=== PATIENT | male | born 1960 | race Caucasian/White ===

== ENCOUNTER 2023-08-16 08:00 | Outpatient (RCR) | payer BC, SELFPAY ==
--- NOTE | 2023-07-19 17:32 | OPREHPOC ---
Outpatient Therapy Plan of Care This is a Multidisciplinary Plan of Care that may contain components documented by all disciplines (PT, OT, and ST.) PT Problem 1 PT Problem #1 Knowledge Deficit PT Goal 1 Goal [place] with HEP PT Goal 2 Goal Patient will ambulate with even stride length bilaterally for improved functional mobility and ADL performance Target Visit 8 PT Problem 2 PT Problem #2 Impaired Range of Motion PT Goal 1 Goal Patient will demonstrate terminal knee extension on R knee for gait normalization Target Visit 8 PT Goal 2 Goal Patient will demonstrate 40 degrees brian hip abduction to reduce restricted hip and pelvic pull during ADLs Target Visit 8 PT Problem 3 PT Problem #3 Impaired Flexibility PT Goal 1 Goal Demonstrate -25 degrees or better HS 90/90 test for reduced posterior pelvic pull Target Visit 8
--- NOTE | 2023-07-19 17:33 | PTOPEVAL1 ---
Assessment and note entered by Ayan Milligan, PT Evaluation Information Assessment Status Evaluation Diagnosis Primary OA of Right Knee, Low back pain Onset 06/25/23 Subjective Information Patient reports that he had an injection about 2 weeks ago. Knee is doing a lot better. L4-L5 Fusion is present and back has been acting up. He is more primarily concerned with his back pain at this time. He works as a musician. All of the back pain is around the area of his fusion. He does not have pain from sitting but does when he goes to stand. Pain goes away when laying down. Back pain is usually always on the R side. Reported Pain Level Pain Score 1: Self Report Assessment PT Clinical Summary Patient presents with knee pain symptoms this date which are improved with injection. He has had some flare ups of low backpain which are likely attributed to gait deviation. Will benefit from skilled therapy to address knee mobility and back pain as part of kinematic chain correction. Patient is leaving for vacation in 4 weeks and would like to maximize function of knee and back. Plan of Care Interventions Hot Pack/Cold Pack,Manual Therapy,Neuro Re- education,Therapeutic Activities,Therapeutic Exercise PT Services Indicated Yes Treatment Frequency and 2x/week for 8 visits Duration These treatments will address the objective and functional deficits as defined above. The patient will be advanced safely and appropriately in order for the patient to progress towards his/her prior level of function. Additional exercises will be introduced and as well as a comprehensive home exercise program upon discharge, if needed, ?to ensure carryover of functional gains achieved in the clinic. This treatment plan has been reviewed and agreement upon by the patient.
--- NOTE | 2023-08-16 08:50 | PTOPDC ---
Assessment and note entered by Ayan Milligan, PT Evaluation Information Assessment Status Discharge Diagnosis Primary OA of Right Knee, Low back pain Onset 06/25/23 Subjective Information Reports that overall he is a lot better than when he started therapy. Reports that with fusions he feels he has limitations with his back. Knee is 100% better than when he started. He has been able to turn over in bed a little better without severe pain. Reported Pain Level Pain Score 0,0: Self Report Assessment PT Clinical Summary Patient met majority of his goals for therapy at this time. Knee appears to not be an issue at this time and he has resumed an extensive walking routine. Still having some hindrance in the back but is improving from symptoms that started in June . Suitable for discharge to [facility] at this time. Plan of Care PT Services Indicated D/C to HEP
--- NOTE | 2023-08-16 08:50 | OPREHPOC ---
Outpatient Therapy Plan of Care This is a Multidisciplinary Plan of Care that may contain components documented by all disciplines (PT, OT, and ST.) PT Problem 1 PT Problem #1 Knowledge Deficit PT Goal 1 Goal [place] with HEP Progress Met PT Goal 2 Goal Patient will ambulate with even stride length bilaterally for improved functional mobility and ADL performance Target Visit 8 Progress Met PT Problem 2 PT Problem #2 Impaired Range of Motion PT Goal 1 Goal Patient will demonstrate terminal knee extension on R knee for gait normalization Target Visit 8 Progress Met PT Goal 2 Goal Patient will demonstrate 40 degrees brian hip abduction to reduce restricted hip and pelvic pull during ADLs Target Visit 8 Progress Partially Met Comment Mostly met. Lacking 2 degrees of measure this date . PT Problem 3 PT Problem #3 Impaired Flexibility PT Goal 1 Goal Demonstrate -25 degrees or better HS 90/90 test for reduced posterior pelvic pull Target Visit 8 Progress Met
== END 2023-08-16 10:51 | disposition home or self-care (01) ==
LOC: ANHGOSHPT 08:00
PROVIDERS: PCP Internal Medicine; Visit Provider Orthopaedic Surgery
DX: M17.11 Unilateral primary osteoarthritis, right knee (principal)
CPT/HCPCS: 97110; 97140; 97161; 97530

== ENCOUNTER 2024-12-18 00:21 | Day surgery (SDC) | payer MEDICARE, BC, SELFPAY ==
--- OUTSIDE RECORDS SUMMARY | 2002-02-19 18:00 | XMS_ITS | Continuity of Care Document ---
Author Organization Formerly [facility] Address [address] [place] [address] [place] [address] Phone Care Team Providers Care Plaster Helper Name Role Phone [facility] [employer] Unavailable Unavail able Scarlet Dawson Unavailable Unavailable Advance Directives Directive Yes / No Effective Date File Name No Information Encounters Encounter Description Practice Location Reason(s) For Visit Diagnoses Date Provider Providers Copied on Encounter [facility], [address], [place], [place], [id number], [place] tel:[phone] [facility] No Information [address] [employer] [address] [facility], [address], [place], [place], [id number] , [place]. tel:[phone] Consulting Provider: Scarlet Dawson, [address] [place] [address], [address]. tel:[phone] Family History Family Member Type Diagnosis Age At Onset No Information Payers Payer name Insurance type Covered constitution party ID Authoriza tion(s) No Information Social History Type Description Quantity Date Captured Comments Sex Male Smoking Status No Information Chief Complaint And Reason For Visit No Information Reason For Referral Reason For Referral No Information History Of Present Illness Encounter Date Complaint History Of Prese nt Illness No Information Functional Status Date Functional Assessmen t No Information Instructions Date Instruction Additional Infor mation No Information Assessments Type Assessment Date No Information Patient Care Teams Name Effective Dates (start - stop) Status Members No Information
--- OUTSIDE RECORDS SUMMARY | 2024-12-12 08:01 | XMS_ITS | Continuity of Care Document ---
Author Organization [facility] Address [address] [place] [phone] Phone Care Team Providers Care Stock Patcher Name Role Phone Aramis Olguin MD Unavailable Unavailabl e Allergies, Adverse Reactions, Alerts Substance Reaction Status Criticality No Known Allergies Active No Inform ation Medications Medication Instructions Dosage Effective Dates (start - stop) Status Comments metoprolol tartrate 25 mg tablet take 1 pill twice a day - Active montelukast 10 mg tablet TAKE 1 TABLET DAILY - Active pantoprazole 40 mg tablet,delayed release TAKE 1 TABLET DAILY - Active atorvastatin 20 mg tablet TAKE 1 TABLET DAILY - Active Eliquis 5 mg tablet TAKE 1 TABLET TWICE A DAY - Active lisinopril 2.5 mg tablet TAKE 1 TABLET BY MOUTH EVERYDAY AT BEDTIME - Active metoprolol tartrate 25 mg tablet - No Longer Active Procedures Procedure Date Complex e/m visit add on OFFICE/OUTPATIENT VISIT, EST ELECTROCARDIOGRAM, COMPLETE Advance Directives Directive Yes / No Effective Date File Name No Information Encounters Encounter Description Practice Location Reason(s) For Visit Diagnoses Date Provider Providers Copied on Encounter [facility], [address], [place], [id number] , tel: [phone] [facility] [place] No Information Clau Self. [address] [place] [address], [place], [id number], . tel:[phone] OFFICE/OUTPA TIENT VISIT, EST [facility], [address] [place] [address], [id number] , tel: [phone] [facility] procedure clearance (chief complaint) CADPalpitationsEsse ntial (primary) hypertensionAcute DVT of deep femoral vein Nov0 5 [facility] Saulius. [address] , [place], [place], [id number], [place]. tel:[phone] Referring Provider: Lyndon Ramírez, [address] [place] [address], [address]. tel:[phone] [facility], [address] [place] [address], [id number] , tel:[phone] [facility] O[place]ie No Information Oct-2 5 [facility] Saulius. [address] [place], [place], [id number], [place]. tel:[phone] Family History Family Member Type Diagnosis Age At Onset No Information Payers Payer name Insurance type Covered libertarian ID [place] aly(s) MIKE MEDICARE PART B [id number] Social History Type Description Quantity Date Captured Comments Alcohol Use Details Unknown Caffeine Use Details Unknown Tobacco Use Status No Information Smoking Status No Information Sex Male Chief Complaint And Reason For Visit No Information Reason For Referral Reason For Referral No Information Plan Of Treatment Date Type Action Status Appointment [place] [facility] BOOKED History Of Present Illness Encounter Date Complaint History Of Prese nt Illness procedure clearance Functional Status Date Functional Assessmen t No Information Instructions Date Instruction Additional Infor mation No Information Assessments Type Assessment Date No Information Patient Care Teams Name Effective Dates (start - stop) Status Members No Information
[2024-12-12 15:41] VITALS: BMI 27.3
--- NOTE | 2024-12-12 16:04 | PC.NURSE ---
Spoke with Patient regarding medication Eliquis. Patient verbalizes understanding that the last dose is to be taken on 12/14/2024 and the Endoscopist will instruct them when to restart after the procedure.
--- OUTSIDE RECORDS SUMMARY | 2024-12-18 00:24 | XMS_ITS | Clinical Summary ---
Author Organization [facility] Address [address] [place] [address] Care Team Providers Care Linux Support Engineer Name Role Phone Lyndon Ramírez MD Primary Care Provider [phone] Allergies Active Allergy Reactions Criticality Noted Date Comments Sulfamethoxazole-Trimethoprim Hives Medium [address] (PROTONIX) 40 mg EC tablet Take 1 tablet (40 mg total) by mouth daily 4 Active montelukast (SINGULAIR) 10 mg tablet Take 1 tablet (10 mg total) by mouth daily 4 Active metoprolol tartrate (LOPRESSOR) 25 mg immediate release tablet Take 1 tablet (25 mg total) by mouth 2 (two) times a day 4 Active lisinopriL (PRINIVIL,ZESTR IL) 2.5 mg tablet Take 1 tablet (2.5 mg total) by mouth nightly 4 Active atorvastatin (LIPITOR) 20 mg tablet Take 1 tablet (20 mg total) by mouth daily 4 Active Eliquis 5 mg tablet Take 1 tablet (5 mg total) by mouth 2 (two) times a day 4 Active multivitamin tabletIndicatio ns:Vitamin Deficiency Prevention Take 1 tablet by mouth daily Active magnesium oxide 400 mg magnesium capsule Take 400 mg by mouth daily Active cyanocobalamin (Vitamin B-12) 500 mcg tabletIndicatio ns:Prevention of Vitamin B12 Deficiency Take 1 tablet (500 mcg total) by mouth daily Active loratadine 10 mg capsule Take 10 mg by mouth daily Active Lactobac no.41/Bifidobac t no.7 (PROBIOTIC-10 ORAL) Take 1 tablet by mouth daily Active fluticasone propionate (FLONASE) 50 mcg/actuation nasal spray Administer 2 sprays into each nostril as needed Active Active Problems Problem Noted Date Diagnosed Date Abnormal stress test 09/27/2023 Surgical History Surgery Date Site/Laterality Comments MENISCUS SURGERY 02/07/2019 - 02/07/2020 Right LAMINECTOMY 02/07/1987 - 02/07/1988 L4-L5 Medical History Medical History Date Comments Hypertension DVT (deep venous thrombosis) lef t leg HLD (hyperlipidemia) Gastritis Seasonal allergies Torn meniscus right Social History Tobacco Use Types Packs/Day Years Used Date Smoking Tobacco: Never Tobacco Cessation:Counseling Given: Not Answered AUDIT-C Answer Date Recorded Q1: How often do you have a drink containing alc ohol? Monthly or less 10/13/2023 Q2: How many drinks containi ng alcohol do you have on a typical day when you are drinking? 1 or 2 10/13/2023 Q3: How often do you have si x or more drinks on one occasion? Never 10/13/2023 Personal Safety Answer Date Recorded Have you ever been in or are you currently in a harmful physical or emotional relationship or is someone making you feel afraid or unsafe? Denies 10/13/2023 Sex and Gender Information Value Date Recorded Sex Assigned at Not on file Legal Sex Male 9:18 AM CDT Gender Identity Not on file Sexual Orientation Not on file Last Filed Vital Signs Vital Sign Reading Time Taken Comments Blood Pressure 126/83 10/13/2023 11:15 AM CDT Pulse 64 10/13/2023 11:20 AM CDT Temperature 36.6 C (97.8 F) 10/13/2023 6:54 AM CDT Respiratory Rate 18 10/13/2023 11:15 AM CDT Oxygen Saturation 95% 10/13/2023 11:20 AM CDT Inhaled Oxygen Concentration - - Weight 103.4 kg (228 lb) 10/13/2023 6:54 AM CDT Height 188 cm (6' 2) 10/13/2023 6:54 AM CDT Body Mass Index 29.27 10/13/2023 6:54 AM CDT Plan of Treatment Health Maintenance Due Date Last Done Comments Colon Cancer Screening-Colonoscopy 1958 Depression Screening 1958 Hepatitis C Screening 1958 Prostate Cancer Screening-PSA 1958 DTaP/Tdap/Td Vaccine (1 - Tdap) 1969 Hepatitis B Screening 1976 Pneumococcal vaccine 65+ (1 of 2 - PCV) 1977 Zoster Vaccine (1 of 2) 2008 Abdominal Aortic Aneurysm (A AA) Screen 10/07/2023 Well Visit 65+ 10/07/2023 Covid-19 Vaccine (7 - 2024-2 6 season) 2024 12/05/2022, 12/13/2021, 12/13/2021, Additional history exists Influenza Vaccine (#1) 2024 , 11/26/2021, 11/20/2020, Additional history exists Fall Risk Assessment 10/12/2024 10/13/2023 Medical Devices Implanted Type Area Ribbon Winder Device Identifier Shelf Expiration Date Model / Serial / Lot Fusion Back Insurance [facility] FEDERAL MEDICARE Care Teams Linux Support Engineer Relationship Specialty Start Date End Date Lyndon Ramírez MD PCP - General Internal Medicine 09/29/23
--- OUTSIDE RECORDS SUMMARY | 2024-12-18 00:24 | XMS_ITS | Data Portability ---
Author Organization [place] [facility] [employer], Main Office Address [address] [place] [address] Care Team Providers Care Skin Former Name Role Phone SANCHEZ RAMÍREZ Primary Care Provider SANCHEZ RAMÍREZ Referring Provider Assessment Encounter Date Assessment Date Assessment LastModified by Organization Details LastModified Time 05/05/2022 05/05/2022 Nebulous symptoms will obtain blood work CT scan of the abdomen and pelvis he just had a colonoscopy I believe a couple years ago see him back in about 3 weeks gallbladder ultrasound [email or web address] Not available 05/05/2022 21:53:01 05/28/2022 05/28/2022 Add Flonase other medicines will continue PPI ordered follow-up 3 months [email or web address] Not available 05/30/2022 14:50:09 09/23/2022 09/23/2022 Blood pressure control continue current therapy get anchest x-ray see me back in 6 months [email or web address] Not available 09/23/2022 11:04:11 Plan of Treatment Reminders Order Date Submit Date Provider Last Modified By Organization Details Last Modified Time Details Appointments None recorded. Lab CMP, serum or plasma 2022 023 CARMELITA Not available 18:51:43 CBC w/ auto diff 2022 023 CARMELITA Not available 19:24:10 lipase, serum or plasma 2022 023 CARMELITA Not available 18:51:44 urinalysis, microscopic 2022 023 cyahl Not available 04/21/202 3 10:58:24 Referral None recorded. Procedures None recorded. Surgeries None recorded. Imaging XR, chest 2022 023 [facility] Not available 4 11:59:08 US, gallbladder - no auth required per [facility]ail[facility] 2022 023 cyahl [facility] ([facility]), [address] [place], [address], 3 10:58:31 CT, abdomen + pelvis, w/ contrast - Approved [id number] 05/11/2022- 07/09/20222022 [facility] [address] [place], [address], 3 16:59:16 Medication Orders Flonase Allergy Relief 50 mcg/actuati on nasal spray,suspe nsion 2022 023 [facility] #[id number], [address], [address], 3 10:58:49 Patient TargetsNo targets recorded. Patient InstructionsNo instructions recorded. Reason for Referral None Reported. Results Created Date Observation Date Name Description Value Unit Range Abnormal Flag Note LastModifiedBy Organization Detail LastModifiedTime 05/29/19 22 05/28/2021 LIPID PANEL cholesterol 161 mg/dL 140-19 9 NIH VINNIE NSUS RECOM MENDA TION FOR CHANTEL STERO L: ADULT CHILD LOW RISK: <200 <170 BORDE RLINE : <200- 239 ----- HIGH RISK: >240 >200 Not Available [facility] (Lab) [address] [place], [address], 05/28/2021 20:25:34 05/29/19 22 05/28/2021 LIPID PANEL triglyceride s 138 mg/dL 0-150 NIH VINNIE NSUS REPOR T RECOM MENDA TION FOR TRIGL YCERI AKHIL: ADULT CHILD LOW RISK: <150 ----- BODER LINE: 150-1 99 ----- HIGH RISK: >200 ----- Not Available [facility] (Lab) [address] [place], [address], 05/28/2021 20:25:34 05/29/19 22 05/28/2021 LIPID PANEL HDL cholesterol 60 mg/dL 40- Not Available [facility] (Lab) [address] [place], [address], 05/28/2021 20:25:34 05/29/19 22 05/28/2021 LIPID PANEL LDL cholesterol, calculated 73 mg/dL 0-130 NIH VINNIE NSUS REPOR T RECOM MENDA TIONS FOR LDL: ADULT CHILD LOW RISK <130 <110 (OPTI MAL LDL) <100 ----- JUANDE RLINE : 130-1 59 ----- HIGH RISK: >160 >130 A TRIGL YCERI DE RESUL T >400 INVAL IDATE S THE CALCU LATIO N FOR LDL FRACT IONAT ION - THE LDL RESUL T WILL NOT BE REPOR JOHNNIE. Not Available [facility] (Lab) [address] [place], [address], 05/28/2021 20:25:34 05/29/19 22 05/28/2021 COMPR EHENS GIOVANNI METAB OLIC PANEL sodium 135 mmol/ L 137-14 5 low Not Available [facility] (Lab) [address] [place], [address], 05/28/2021 20:25:32 05/29/19 22 05/28/2021 COMPR EHENS GIOVANNI METAB OLIC PANEL potassium 4.9 mmol/ L 3.5-5. 1 Not Available [facility] (Lab) [address] [place], [address], 05/28/2021 20:25:32 05/29/19 22 05/28/2021 COMPR EHENS GIOVANNI METAB OLIC PANEL chloride 99 mmol/ L 98-107 Not Available [facility] (Lab) [address] [place], [address], 05/28/2021 20:25:32 05/29/19 22 05/28/2021 COMPR EHENS GIOVANNI METAB OLIC PANEL carbon dioxide 31 mmol/ L 22-30 high Not Available [facility] (Lab) [address] [place], [address], 05/28/2021 20:25:32 05/29/19 22 05/28/2021 COMPR EHENS GIOVANNI METAB OLIC PANEL anion gap 9.9 mmol/ L 14-22 low Not Available [facility] (Lab) [address] [place], [address], 05/28/2021 20:25:32 05/29/19 22 05/28/2021 COMPR EHENS GIOVANNI METAB OLIC PANEL glucose 95 mg/dL 70-99 Not Available [facility] (Lab) [address] [place], [address], 05/28/2021 20:25:32 05/29/19 22 05/28/2021 COMPR EHENS GIOVANNI METAB OLIC PANEL BUN 16 mg/dL 8-19 Not Available [facility] (Lab) [address] [place], [address], 05/28/2021 20:25:32 05/29/19 22 05/28/2021 COMPR EHENS GIOVANNI METAB OLIC PANEL creatinine 0.63 mg/dL 0.66-1 .25 low Not Available [facility] (Lab) [address] [place], [address], 05/28/2021 20:25:32 05/29/19 22 05/28/2021 COMPR EHENS GIOVANNI METAB OLIC PANEL GFR >60 Refer ence Range : [place] ge GFR Healt hy Adult : >60 mL/mi n/1.7 3 m2 Chron ic Kidne y Disea se: 15-60 mL/mi n/1.7 3 m2 Kidne y Failu re: <15/m L/min /1.73 m2 www.n iddk. nih.g ov The MDRD study equat ion has not been valid ated in child hiram <18 years of age; pregn ant women ; the elder ly >85 years of age; or in some racia l or ethni c subgr oups, such as Hismiguel nics. Outsi de the valid ated ronaldo eters , estim ated GFR is less accur ate, requi ring clini clint judgm ent on a case- by-ca se basis . Clini clint inter preta tion for other races and ages must be made by the clini madeline. The MDRD study equat ion has not been valid ated for the evalu ation of serum creat inine relat ed to nutri enid l statu s or medic ation usage . For perso ns <18 years of age, a pedia tric GFR calcu lator is avail able on the [facility] websi te: https ://caleb baldwin.gee holcomb.o rg/pr ofess ional s/kdo qi/gf r_cal culat or Not Available [facility] (Lab) [address] [place], [address], 05/28/2021 20:25:32 05/29/19 22 05/28/2021 COMPR EHENS GIOVANNI METAB OLIC PANEL alkaline phosphatase 97 U/L 38-126 Not Available [facility] (Lab) [address] [place], [address], 05/28/2021 20:25:32 05/29/19 22 05/28/2021 COMPR EHENS GIOVANNI METAB OLIC PANEL alanine aminotransfe rase 25 U/L 0-50 Not Available [facility] (Lab) [address] [place], [address], 05/28/2021 20:25:32 05/29/19 22 05/28/2021 COMPR EHENS GIOVANNI METAB OLIC PANEL aspartate aminotransfe rase 30 U/L 15-46 Not Available [facility] (Lab) [address] [place], [address], 05/28/2021 20:25:32 05/29/19 22 05/28/2021 COMPR EHENS GIOVANNI METAB OLIC PANEL bilirubin, total 0.50 mg/dL 0.20-1 .30 Not Available [facility] (Lab) [address] [place], [address], 05/28/2021 20:25:32 05/29/19 22 05/28/2021 COMPR EHENS GIOVANNI METAB OLIC PANEL calcium 9.7 mg/dL 8.4-10 .2 Not Available [facility] (Lab) [address] [place], [address], 05/28/2021 20:25:32 05/29/19 22 05/28/2021 COMPR EHENS GIOVANNI METAB OLIC PANEL total protein 7.3 g/dL 6.3-8. 2 Not Available [facility] (Lab) [address] [place], [address], 05/28/2021 20:25:32 05/29/19 22 05/28/2021 COMPR EHENS GIOVANNI METAB OLIC PANEL albumin 4.3 g/dL 3.4-5. 0 Not Available [facility] (Lab) [address] [place], [address], 05/28/2021 20:25:32 05/29/19 22 05/28/2021 COMPR EHENS GIOVANNI METAB OLIC PANEL globulin 3.0 g/dL 2.6-4. 2 Not Available [facility] (Lab) [address] [place], [address], 05/28/2021 20:25:32 05/29/19 22 05/28/2021 COMPR EHENS GIOVANNI METAB OLIC PANEL A/G ratio 1.4 ratio 1.0-2. 0 Not Available [facility] (Lab) [address] [place], [address], 05/28/2021 20:25:32 05/06/19 23 05/05/2022 COMPR EHENS GIOVANNI METAB OLIC PANEL sodium 138 mmol/ L 137-14 5 Not Available [facility] (Lab) [address] [place], [address], 05/05/2022 18:51:43 05/06/19 23 05/05/2022 COMPR EHENS GIOVANNI METAB OLIC PANEL potassium 4.8 mmol/ L 3.5-5. 1 Not Available [facility] (Lab[facility] [address] [facility] [place], [address], 05/05/2022 18:51:43 05/06/19 23 05/05/2022 COMPR EHENS GIOVANNI METAB OLIC PANEL chloride 104 mmol/ L 98-107 Not Available [facility] (Lab) [address] [place], [address], 05/05/2022 18:51:43 05/06/19 23 05/05/2022 COMPR EHENS GIOVANNI METAB OLIC PANEL carbon dioxide 28 mmol/ L 22-30 Not Available [facility] (Lab) [address] [place], [address], 05/05/2022 18:51:43 05/06/19 23 05/05/2022 COMPR EHENS GIOVANNI METAB OLIC PANEL anion gap 10.8 mmol/ L 14-22 low Not Available [facility] (Lab) [address] [place], [address], 05/05/2022 18:51:43 05/06/19 23 05/05/2022 COMPR EHENS GIOVANNI METAB OLIC PANEL glucose 99 mg/dL 70-99 Not Available [facility] (Lab) [address] [place], [address], 05/05/2022 18:51:43 05/06/19 23 05/05/2022 COMPR EHENS GIOVANNI METAB OLIC PANEL BUN 15 mg/dL 8-19 Not Available [facility] (Lab) [address] [place], [address], 05/05/2022 18:51:43 05/06/19 23 05/05/2022 COMPR EHENS GIOVANNI METAB OLIC PANEL creatinine 0.64 mg/dL 0.66-1 .25 low Not Available [facility] (Lab) [address] [place], [address], 05/05/2022 18:51:43 05/06/19 23 05/05/2022 COMPR EHENS GIOVANNI METAB OLIC PANEL GFR >60 Refer ence Range : [place] ge GFR Healt hy Adult : >60 mL/mi n/1.7 3 m2 Chron ic Kidne y Disea se: 15-60 mL/mi n/1.7 3 m2 Kidne y Failu re: <15/m L/min /1.73 m2 www.n iddk. nih.g ov The MDRD study equat ion has not been valid ated in child hiram <18 years of age; pregn ant women ; the elder ly >85 years of age; or in some racia l or ethni c subgr oups, such as Hispr nics. Outsi de the valid ated ronaldo eters , estim ated GFR is less accur ate, requi ring clini clint judgm ent on a case- by-ca se basis . Clini clint inter preta tion for other races and ages must be made by the clini madeline. The MDRD study equat ion has not been valid ated for the evalu ation of serum creat inine relat ed to nutri enid l statu s or medic ation usage . For perso ns <18 years of age, a pedia tric GFR calcu lator is avail able on the F websi te: https ://caleb w.kid zhang.o rg/pr ofess ional s/kdo qi/gf r_cal culat or Not Available [facility] (Lab) [address] [place], [address], 05/05/2022 18:51:43 05/06/19 23 05/05/2022 COMPR EHENS GIOVANNI METAB OLIC PANEL alkaline phosphatase 96 U/L 38-126 Not Available [facility] (Lab) [address] [place], [address], 05/05/2022 18:51:43 05/06/19 23 05/05/2022 COMPR EHENS GIOVANNI METAB OLIC PANEL alanine aminotransfe rase 40 U/L 0-50 Not Available [facility] (Lab) [address] [facility] [place], [address], 05/05/2022 18:51:43 05/06/19 23 05/05/2022 COMPR EHENS GIOVANNI METAB OLIC PANEL aspartate aminotransfe rase 37 U/L 15-46 Not Available [facility] (Lab) [address] [place], [address], 05/05/2022 18:51:43 05/06/19 23 05/05/2022 COMPR EHENS GIOVANNI METAB OLIC PANEL bilirubin, total 0.80 mg/dL 0.20-1 .30 Not Available [facility] (Lab) [address] [place], [address], 05/05/2022 18:51:43 05/06/19 23 05/05/2022 COMPR EHENS GIOVANNI METAB OLIC PANEL calcium 9.3 mg/dL 8.4-10 .2 Not Available [facility] (Lab) [address] [place], [address], 05/05/2022 18:51:43 05/06/19 23 05/05/2022 COMPR EHENS GIOVANNI METAB OLIC PANEL total protein 7.0 g/dL 6.3-8. 2 Not Available [facility] (Lab) [address] [place], [address], 05/05/2022 18:51:43 05/06/19 23 05/05/2022 COMPR EHENS GIOVANNI METAB OLIC PANEL albumin 4.2 g/dL 3.0-4. 4 Not Available [facility] (Lab) [address] [place], [address], 05/05/2022 18:51:43 05/06/19 23 05/05/2022 COMPR EHENS GIOVANNI METAB OLIC PANEL globulin 2.8 g/dL 2.6-4. 2 Not Available [facility] (Lab) [address] [place], [address], 05/05/2022 18:51:43 05/06/19 23 05/05/2022 COMPR EHENS GIOVANIN METAB OLIC PANEL A/G ratio 1.5 ratio 1.0-2. 0 Not Available [facility] (Lab) [address] [place], [address], 05/05/2022 18:51:43 05/06/19 23 05/05/2022 LIPAS E SERUM lipase 74 U/L 23-300 Not Available [facility] (Lab) [address] [place], [address], 05/05/2022 18:51:44 05/06/19 23 05/05/2022 CBC/C OMPLE TE BLD COUNT W/DIF F white blood cells 5.0 x10'3 /uL 4.2-10 .8 Not Available [facility] (Lab) [address] [place], [address], 05/05/2022 19:24:10 05/06/1905/05/2022 CBC/C OMPLE TE BLD COUNT W/DIF F red blood cells 4.47 x10'6 /uL 4.10-5 .80 Not Available [facility] (Lab) [address] [place], [address], 05/05/2022 19:24:10 05/06/19 23 05/05/2022 CBC/C OMPLE TE BLD COUNT W/DIF F hemoglobin 14.7 g/dL 13.2-1 7.0 Not Available [facility] (Lab) [address] [place], [address], 05/05/2022 19:24:10 05/06/19 23 05/05/2022 CBC/C OMPLE TE BLD COUNT W/DIF F hematocrit 45.0 % 39.3-5 0.0 Not Available [facility] (Lab) [address] [place], [address], 05/05/2022 19:24:10 05/06/19 23 05/05/2022 CBC/C OMPLE TE BLD COUNT W/DIF F mean red cell volume 100.7 fL 80.0-9 7.0 high Not Available [facility] (Lab) [address] [place], [address], 05/05/2022 19:24:10 05/06/19 23 05/05/2022 CBC/C OMPLE TE BLD COUNT W/DIF F mean red cell hemoglobin 32.9 pg 27.0-3 3.0 Not Available [facility] (Lab) [address] [place], [address], 05/05/2022 19:24:10 05/06/19 23 05/05/2022 CBC/C OMPLE TE BLD COUNT W/DIF F mean RBC HGB concentratio n 32.7 g/dL 31.0-3 6.0 Not Available [facility] (Lab) [address] [place], [address], 05/05/2022 19:24:10 05/06/1905/05/2022 CBC/C OMPLE TE BLD COUNT W/DIF F red cell distribution width 12.1 % 11.8-1 5.5 Not Available [facility] (Lab) [address] [place], [address], 05/05/2022 19:24:10 05/06/19 23 05/05/2022 CBC/C OMPLE TE BLD COUNT W/DIF F platelets 240 x10'3 /uL 150-40 0 Not Available [facility] (Lab) [address] [place], [address], 05/05/2022 19:24:10 05/06/1905/05/2022 CBC/C OMPLE TE BLD COUNT W/DIF F mean platelet volume 10.6 fL 9.0-12 .4 Not Available [facility] (Lab) [address] [place], [address], 05/05/2022 19:24:10 05/06/1905/05/2022 CBC/C OMPLE TE BLD COUNT W/DIF F neutrophils 65.9 % 39.0-7 2.0 Not Available [facility] (Lab) [address] [place], [address], 05/05/2022 19:24:10 05/06/1905/05/2022 CBC/C OMPLE TE BLD COUNT W/DIF F lymphocytes 18.9 % 16.0-4 7.0 Not Available [facility] (Lab) [address] [place], [address], 05/05/2022 19:24:10 05/06/1905/05/2022 CBC/C OMPLE TE BLD COUNT W/DIF F monocytes 11.0 % 5.0-12 .0 Not Available [facility] (Lab) [address] [place], [address], 05/05/2022 19:24:10 05/06/1905/05/2022 CBC/C OMPLE TE BLD COUNT W/DIF F eosinophils 3.4 % 1.0-7. 0 Not Available [facility] (Lab) [address] [place], [address], 05/05/2022 19:24:10 05/06/19 23 05/05/2022 CBC/C OMPLE TE BLD COUNT W/DIF F basophils 0.4 % 0.0-2. 0 Not Available [facility] (Lab) [address] [place], [address], 05/05/2022 19:24:10 05/06/1905/05/2022 CBC/C OMPLE TE BLD COUNT W/DIF F immature granulocytes 0.4 % 0.00-0 .50 Not Available [facility] (Lab) [address] [place], [address], 05/05/2022 19:24:10 05/06/19 23 05/05/2022 CBC/C OMPLE TE BLD COUNT W/DIF F neutrophils, absolute count 3.31 x10'3 /uL 1.5-8. 0 Not Available [facility] (Lab) [address] [place], [address], 05/05/2022 19:24:10 05/06/19 23 05/05/2022 CBC/C OMPLE TE BLD COUNT W/DIF F lymphocytes, absolute count 0.95 x10'3 /uL 1.07-3 .43 low Not Available [facility] (Lab) [address] [place], [address], 05/05/2022 19:24:10 05/06/19 23 05/05/2022 CBC/C OMPLE TE BLD COUNT W/DIF F monocytes, absolute count 0.55 x10'3 /uL 0.29-0 .99 Not Available [facility] (Lab) [address] [place], [address], 05/05/2022 19:24:10 05/06/19 23 05/05/2022 CBC/C OMPLE TE BLD COUNT W/DIF F eosinophils, absolute count 0.17 x10'3 /uL 0.02-0 .53 Not Available [facility] (Lab) [address] [place], [address], 05/05/2022 19:24:10 05/06/19 23 05/05/2022 CBC/C OMPLE TE BLD COUNT W/DIF F basophils, absolute count 0.02 x10'3 /uL 0.01-0 .08 Not Available [facility] (Lab) [address] [place], [address], 05/05/2022 19:24:10 05/06/19 23 05/05/2022 CBC/C OMPLE TE BLD COUNT W/DIF F immature granulocytes ,absolute 0.02 x10'3 /uL 0.00-0 .05 Not Available [facility] (Lab) [address] [place], [address], 05/05/2022 19:24:10 05/06/19 23 05/05/2022 CBC/C OMPLE TE BLD COUNT W/DIF F nucleated red blood cells 0.0 % -0 Not Available [facility] (Lab) [address] [place], [address], 05/05/2022 19:24:10 05/06/19 23 05/05/2022 CBC/C OMPLE TE BLD COUNT W/DIF F NRBC# 0.00 x10'3 /uL Not Available [facility] (Lab) [address] [place], [address], 05/05/2022 19:24:10 05/06/19 23 05/05/2022 URINE MICRO SCOPI C EXAM/ IRIS white blood cells 0-8 /i??h pfi?? 0-8 Not Available [facility] (Lab) [address] [place], [address], 05/05/2022 19:44:38 05/06/19 23 05/05/2022 URINE MICRO SCOPI C EXAM/ IRIS red blood cells 0-4 /i??h pfi?? 0-4 Not Available [facility] (Lab) [address] [place], [address], 05/05/2022 19:44:38 05/06/19 23 05/05/2022 URINE MICRO SCOPI C EXAM/ IRIS bacteria NONE Not Available [facility] (Lab) [address] [place], [address], 05/05/2022 19:44:38 05/06/19 23 05/05/2022 URINE MICRO SCOPI C EXAM/ IRIS mucous OCCASI ONAL /i??l pfi?? abnormal Not Available [facility] (Lab) [address] [place], [address], 05/05/2022 19:44:38 05/06/19 23 05/05/2022 URINE MICRO SCOPI C EXAM/ IRIS squamous epithelial NONE /i??l pfi?? Not Available [facility] (Lab) [address] [place], [address], 05/05/2022 19:44:38 05/06/19 23 05/05/2022 URINE MICRO SCOPI C EXAM/ IRIS hyaline cast OCCASI ONAL /i??l pfi?? none seen- abnormal Not Available [facility] (Lab) [address] [place], [address], 05/05/2022 19:44:38 11/27/19 22 11/26/2021 US, lower extre mity, vascu lar No observ ation record ed. [id number] [facility] [address], [place], [address], 04/07/2022 05:04:38 11/27/19 22 11/26/2021 US, echo ardio gram No observ ation record ed. [id number] [facility] [address], [place], [address], 04/07/2022 05:04:38 05/12/19 23 05/11/2022 CT, abdom en + pelvi s, w/ contr ast [facility] [address] [place] [address] [phone] Patien t Name: ANGELO MEDEL Benjamin Access ion #: [id number] Sex: M : 1960 3 Locati on: RAD Attend ing Physic lori: VICKY RAMÍREZ Orderi ng Physic lori: VICKY RAMÍREZ Exam Date: 05/12/19 3:03 PM Exam Name: CT ABDOME N PELVIS W Admitt ing Diagno sis(es ): RADIOL OGY REPORT - FINAL EXAM: CT ABDOME N PELVIS W HISTOR Y: abdomi nal pain COMPAR MILLER: None TECHNI QUE: The abdome n and pelvis are evalua johnnie with intrav enous contra st. Axial images are recons tructe d in the tipton l, sagitt al, and axial planes and are review ed with medias tinal lung window s settin gs. This CT exam was perfor med using one or more of the follow ing dose reduct ion techni ques: Automa johnnie exposu re contro l, adjust ment of the mA and/or kV accord ing to patien t size, or use of iterat giovanni recons tructi on techni que. Dose: 100 ML Isovue 300 intrav enous Page 1 of 4 [facility] [place] Rodrigo patrick Name: ANGELO MEDEL Access ion #: [id number] Sex: M : 1960 5 Exam Date: 05/12/19 3:03 PM Exam Name: CT ABDOME N PELVIS W Admitt ing Diagno sis(es ): Oral contra st:30 mL Gastro view PO FINDIN GS: Lower chest: Bibasi lar atelec tatic densit ies. CT ABDOME N: Liver: No acute findin gs, fatty liver parenc hymal replac ement residu als. Gallbl adder and biliar y system : Unrema rkable Spleen : Normal size Pancre as: Unrema rkable Adrena l glands : Unrema rkable Kidney s and ureter s: Unrema rkable Append ix: No CT eviden ce of append icitis . Stomac h and bowel: No eviden ce of gastri c outlet obstru ction. Mild thicke rowdy mucosa of the gastri c antrum , correl ate for peptic ulcer diseas e, direct visual izatio n could be perfor med. Perito brittany cavity : No acute proces s Lymph nodes: No signif icant lympha denopa thy Page 2 of 4 [facility] t Name: ANGELO MEDEL Benjamin Access ion #: [id number] Sex: M : 1960 5 Exam Date: 05/12/19 3:03 PM Exam Name: CT ABDOME N PELVIS W Admitt ing Diagno sis(es ): Vascul ature: No aneury sm Osseou s struct ures: Multil evel degene rative change s. 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 Extra abdomi nal soft tissue s: Unrema rkable CT PELVIS : Reprod uctive : Prosta tic enlarg ement, the median lobe of the prosta te impres ses upon the base of the bladde r, consid er referr al. Correl ate with PSA. Rectos igmoid : Modera te divert iculos is withou t eviden ce of an acute inflam matory proces s. Bladde r and distal ureter s: See above, no hydrou reter. Extra pelvic soft tissue s: Unrema rkable IMPRES MANDY: 1. Thicke mansoor mucosa of the gastri c antrum and proxim al pyloru s, correl ate for peptic ulcer diseas e or other sympto matolo gy, consid er direct visual izatio n referr al. 2. Prosta tic enlarg ement, the base of the bladde r is impres sed upon by the median lobe of the prosta te. 3. Sigmoi d divert iculos is. 4. Other findin gs descri bed above. Page 3 of 4 [facility] t Name: ISAURA Romero ANGELO Alexander Access ion #: [id number] Sex: M : 1960 5 Exam Date: 05/12/19 3:03 PM Exam Name: CT ABDOME N PELVIS W Admitt ing Diagno sis(es ): Create d and electr onical ly signed by: Juan frey MD Signed Date: 05/12/19 3:56 PM (CT) Dictat ed by: Juan frey MD (CT) (CT) Page 4 of 4 [email or web address] [facility] (Imaging) [address] [place], [address], 05/18/2022 17:29:29 05/20/19 23 05/19/2022 cardi ac monit or No observ ation record ed. [id number] [facility] [address], [place], [address], 05/31/2022 10:15:39 05/21/19 23 05/19/2022 US, gallb ladde r [facility] [address] [place] [address] Patien t Name: ANGELO MEDEL Access ion #: [id number] Sex: M : 1960 7 Locati on: RAD Attend ing Physic lori: VICKY RAMÍREZ Orderi ng Physic lori: VICKY RAMÍREZ Exam Date: 023 5:09 PM Exam Name: US ABDOME N SINGLE ORGAN Admitt ing Diagno sis(es ): RADIOL OGY REPORT - FINAL EXAM: US ABDOME N SINGLE ORGAN HISTOR Y: abdome n pain 61-yea r-old male with abdomi nal pain. COMPAR MILLER: CT scan dated 2022. TECHNI QUE: Right upper quadra nt ultras ound was perfor med. FINDIN GS: No gallst ones, gallbl adder wall thicke rowdy, or perich olecys tic free fluid. The patien t was not tender to transd ucer pressu re over the gallbl adder. No intrah epatic biliar y ductal dilata tion or liver mass. The liver is somewh at echoge faustina and diffic ult to penetr ate sonogr aphica lly. There is hepato petal portal venous color Dopple r flow. The common duct measur es 3.6 mm in diamet er. The pancre as is not well visual ized sonogr aphica lly, possib ly due Page 1 of 2 [facility] [place] Patien t Name: LINDAKLEBERANGELO Hurtado Access ion #: [id number] Sex: M : 1960 7 Exam Date: 5:09 PM Exam Name: US ABDOME N SINGLE ORGAN Admitt ing Diagno sis(es ): to overly ing bowel gas. The intrah epatic portio n of the IVC is patent . No upper abdomi nal aortic ectasi a. The right kidney measur es 10.3 cm in length and is normal in appear ance. IMPRES MANDY: 1. Possib le hepati c steato sis. 2. Otherw ise unrema rkable right upper quadra nt ultras ound. Create d and electr onical ly signed by: Shailesh fried MD Signed Date: 10:15 AM (CT) Dictat ed by: Shailesh fried MD DD: 10:15 AM (CT) DT: 10:15 AM (CT) Page 2 of 2 [facility] (Imaging) [address] [place], [address], 05/28/2022 10:58:31 06/05/19 23 06/04/2022 PFT, compl ete No observ ation record ed. [email or web address] [facility] [address], [place], [address], 09/23/2022 12:45:14 09/24/19 23 XR, chest [facility] [address] [facility] [place] [address] Patizaid t Name: ANGELO MEDEL Access ion #: [id number] Sex: M : 1960 4 Dictat ed By: Chucho Moreno Attend ing Physic lori: VICKY RAMÍREZ Orderi Physic lori: VICKY RAMÍREZ Exam Date: 2022 10:24 AM Exam Name: XR CHEST 2V Admitt ing Diagno sis(es ): EXAM: XR CHEST 2V INDICA TION: 61 years old Male sob COMPAR MILLER: None. FINDIN GS: The cardia c silhou ette is normal . There is no pulmon arlet edema. The lungs are clear. There is no pneumo alysha. There is no pneumo thorax . There is no abnorm al foreig n body. IMPRES MANDY: There is no acute abnorm ality. Electr onical ly Signed by: Chucho Moreno at 2022 13:27: 32 PM Page 1 [facility] (Imaging) [address] [place], [address], 03/07/2023 11:59:08 Result Notes Documentation Provider Name and Address Organization Details Recorded Time Ct, Abdomen + Pelvis, W/ Contrast : [facility] [address], [place] [id number] Patient Name: ANGELO DAHL Sex: M : 1960 Location: [facility] Attending Physician: SANCHEZ RAMÍREZ Ordering Physician: SANCHEZ RAMÍREZ Exam Date: 05/11/2022 3:03 PM Exam Name: CT ABDOMEN PELVIS W Admitting Diagnosis(es): RADIOLOGY REPORT - FINAL EXAM: CT ABDOMEN PELVIS W HISTORY: abdominal pain COMPARISON: None TECHNIQUE: The abdomen and pelvis are evaluated with intravenous contrast. Axial images are reconstructed in the coronal, sagittal, and axial planes and are reviewed with mediastinal lung windows settings. This CT exam was performed using one or more of the following dose reduction techniques: Automated exposure control, adjustment of the mA and/or kV according to patient size, or use of iterative reconstruction technique. Dose: 100 ML Isovue 300 intravenous Page [address] [place] [address] Patient Name: ANGELO DAHL Sex: M : 1960 Exam Date: 05/11/2022 3:03 PM Exam Name: CT ABDOMEN PELVIS W Admitting Diagnosis(es): Oral contrast:30 mL Gastroview PO FINDINGS: Lower chest: Bibasilar atelectatic densities. CT ABDOMEN: Liver: No acute findings, fatty liver parenchymal replacement residuals. Gallbladder and biliary system: Unremarkable Spleen: Normal size Pancreas: Unremarkable Adrenal glands: Unremarkable Kidneys and ureters: Unremarkable Appendix: No CT evidence of appendicitis. Stomach and bowel: No evidence of gastric outlet obstruction. Mild thickening mucosa of the gastric antrum, correlate for peptic ulcer disease, direct visualization could be performed. Peritoneal cavity: No acute process Lymph nodes: No significant lymphadenopathy Page 2 of 4 [facility] Patient Name: ANGELO DAHL Sex: M : 1960 Exam Date: 05/11/2022 3:03 PM Exam Name: CT ABDOMEN PELVIS W Admitting Diagnosis(es): Vasculature: No aneurysm Osseous structures: Multilevel degenerative changes. Fusion of the L3-4 L4-5 and L5-S1 disc spaces. Extra abdominal soft tissues: Unremarkable CT PELVIS: Reproductive: Prostatic enlargement, the median lobe of the prostate impresses upon the base of the bladder, consider referral. Correlate with PSA. Rectosigmoid: Moderate diverticulosis without evidence of an acute inflammatory process. Bladder and distal ureters: See above, no hydroureter. Extra pelvic soft tissues: Unremarkable IMPRESSION: 1. Thickened mucosa of the gastric antrum and proximal pylorus, correlate for peptic ulcer disease or other symptomatology, consider direct visualization referral. 2. Prostatic enlargement, the base of the bladder is impressed upon by the median lobe of the prostate. 3. Sigmoid diverticulosis. 4. Other findings described above. Page 3 of 4 [facility] Patient Name: ANGELO DAHL Sex: M : 1960 Exam Date: 05/11/2022 3:03 PM Exam Name: CT ABDOMEN PELVIS W Admitting Diagnosis(es): Created and electronically signed by: Juan Rutledge MD Signed Date: 05/11/2022 3:56 PM (CT) Dictated by: Juan Rutledge MD (CT) (CT) Page 4 of 4 Caroline Nish mao [facility] 05/18/2022 17:29:29 Xr, Chest : [address] [address] Patient Name: ANGELO DAHL Sex: M : 1960 Dictated By: Chucho Moreno Attending Physician: SANCHEZ RAMÍREZ Ordering Physician: SANCHEZ RAMÍREZ Exam Date: 09/23/2022 10:24 AM Exam Name: XR CHEST 2V Admitting Diagnosis(es): EXAM: XR CHEST 2V INDICATION: 61 years old Male sob COMPARISON: None. FINDINGS: The cardiac silhouette is normal. There is no pulmonary edema. The lungs are clear. There is no pneumonia. There is no pneumothorax. There is no abnormal foreign body. IMPRESSION: There is no acute abnormality. 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 Not Available [facility] 3 12:09:10 Pure hyperchole sterolemia 004832640 Active Not Available [facility] 3 12:09:10 Pain in left lower limb 588058401 Completed Not Available [facility] 3 04:52:29 Knee pain Completed Not Available [facility] 3 04:52:29 Sinusitis 19976673 Completed Not Available [facility] 3 04:52:29 Diverticul ar disease 959124895 Active Not Available [facility] 3 12:09:10 Essential hypertensi on 51223058 Active 2016 Not Available [facility] 3 12:09:10 Spinal stenosis of lumbar region 56521971 Active 2019 Not Available [facility] 3 12:09:10 Supraventr icular tachycardi a 6933727 Active 2019 Not Available [facility] 3 12:09:10 Deep venous thrombosis 936873957 Active 2020May 26 2020 Not Available [facility] 3 12:09:10 Chronic rhinitis 84707440 Active 2021 Not Available [facility] 3 12:09:10 Nausea 776301101 Active 2022 Not Available [facility] 3 12:09:10 Abdominal pain 01324895 Active 2022 Not Available [facility] 3 12:09:10 Computed tomography result abnormal 291190804 Active 2022 Not Available [facility] 3 12:09:10 Rhinitis 81423787 Active 2022 Not Available [facility] 3 12:09:10 Cough 76273813 Active 2022 Not Available [facility] 3 12:09:10 Problem Notes None recorded. Procedures Surgical History Date Name Laterality Status Provider Name and Address Organization Details Recorded Time 08/02/19 15 Colonoscopy completed Not Available [facility] 04/08/19 23 04:43:09 04/25/19 10 Colonoscopy completed Not Available [facility] 04/08/19 23 04:43:09 Arthrd ant ntrbd min dsc lum completed Not Available [facility] 04/07/2022 04:43:09 repair of meniscus completed Not Available [facility] 04/07/2022 04:43:09 Imaging Results None recorded. Procedure Notes None recorded. Medical Equipment None Reported. Allergies Allergen ID Allergen Name Allergen Category Reaction Reaction Severity Criticality Documentation Date Start Date Code Code System Note Provider Name and Address Organization Details Recorded Time 8040 Bactrim medicatio n hives moderate Not available 04/07/2022 98399 9 RxNorm Not Available [facility] 3 05:03:51 Medications Name Sig Start Date Stop Date Status Note LastModified by Organization Details LastModified Time Prescript ion - Prior Authoriza tion Request active Not Available Not Available Not Available cyclobenz aprine 10 mg tablet 07/19 completed Not Available Not Available Not Available amoxicill in 500 mg capsule TAKE 1 CAPSULE BY MOUTH THREE TIMES A DAY 05/05 completed Not Available Not Available Not Available atorvasta tin 10 mg tablet TAKE 1 TABLET DAILY active Not Available Not Available No t Available hydrocodo ne 5 mg-acetam inophen 325 mg tablet TAKE 1 TABLET BY MOUTH EVERY 4 HOURS active Not Available Not Available No t Available Zithromax Z-Fransisco 250 mg tablet Take 2 TABLEts the first day then 1/day active Not Available Not Available No t Available sulfameth oxazole 800 mg-trimet hoprim 160 mg tablet active Not Available Not Available Not Available aspirin 81 mg tablet,de layed release Take 1 tablet every day by oral route. 07/22 completed Not Available Not Available Not Available amoxicill in 500 mg tablet Take 1 tablet 3 times a day by oral route for 7 days. 05/02 completed Not Available Not Available Not Available acyclovir 800 mg tablet 05/02 completed Not Available Not Available Not Available Kenalog 10 mg/mL suspensio n for injection In office injectio n administ ered by the provider 01/16 completed [facility]: [id number] 4-20 Not Available Not Available Not Available pantopraz ole 40 mg tablet,de layed release TAKE 1 TABLET BY MOUTH EVERY DAY active Not Available Not Available No t Available omeprazol e 20 mg capsule,d elayed release TAKE 1 CAPSULE DAILY 05/18 completed changed to pantopra zole 40mg Not Available Not Available Not Available montel[facility] st 10 mg tablet TAKE 1 TABLET BY MOUTH EVERY DAY active Not Available Not Available No t Available mupirocin 2 % topical ointment 10/26 completed Not Available Not Available Not Available levofloxa manju 500 mg tablet 10/26 completed Not Available Not Available Not Available methylpre dnisolone 4 mg tablets in a dose pack take decreasi ng doses as directed 10/18 completed Not Available Not Available Not Available piroxicam 20 mg capsule 09/10 completed Not Available Not Available Not Available fluticaso ne propionat e 50 mcg/actua tion nasal spray,higinio pension SPRAY 1 SPRAY BY INTRANAS AL ROUTE EVERY DAY active Not Available Not Available No t Available lisinopri l 2.5 mg tablet TAKE 1 TABLET BY MOUTH EVERYDAY AT BEDTIME active Not Available Not Available No t Available loratadin e 10 mg tablet Take 1 tablet every day by oral route. 2019 active Not Available Not Available Not Avai lable amoxicill in 875 mg-potass ium clavulana te 125 mg tablet Take 1 tablet every 12 hours by oral route for 10 days. 06/15 completed Not Available Not Available Not Available Nitroling ual 400 mcg/spray 07/22 completed Not Available Not Available Not Available metoprolo l tartrate 25 mg tablet TAKE 1 TABLET BY MOUTH TWICE A DAY active Not Available Not Available No t Available magnesium active Not Available Not Shaila ilable Not Available Aspir-81 2019 active Not Available Not Available Not Avai lable multivita min 2020 active Not Available Not Available Not Avai lable lidocaine (PF) 10 mg/mL (1 %) injection solution In office injectio n administ ered by the provider 01/16 completed [facility]: 0409-427 07-24 Not Available Not Available Not Available ProAir HFA 90 mcg/actua tion aerosol inhaler 10/26 completed Not Available Not Available Not Available Probiotic active Not Available Not Shaila ilable Not Available Suprep Bowel Prep Kit 17.5 gram-3.13 gram-1.6 gram oral solution 11/28 completed Not Available Not Available Not Available Eliquis 5 mg tablet active Not Available Not Available No t Available Fluvirin 45 mcg (15 mcg x 3)/0.5 mL intramusc ular suspensio n active Not Available Not Available Not Available Fluzone Quad 60 mcg (15 mcg x 4)/0.5 mL IM suspensio n 12/21 completed Not Available Not Available Not Available Flucelvax Quad (PF) 60 mcg (15 mcg x 4)/0.5 mL IM syringe active Not Available Not Available Not Available Fluzone Quad (PF) 60 mcg (15 mcg x 4)/0.5 mL IM syringe active Not Available Not Available Not Available Fluzone Quad (PF) 60 mcg (15 mcg x 4)/0.5 mL IM syringe active Not Available Not Available Not Available Vitals Date Recorded Body height Body mass index (BMI) Body weight Body temperature Heart rate Systolic And Diastolic Provider Name and Address Organization Details Last Updated DateTime 3 187.96 cm 28 kg/m2 93004.1 4 g 97.6 [degF] 63 /min 122/78 mm[Hg] BUTCH Gilbert [employer] [facility] [employer] 3 10:06:13 Date Recorded Body mass index (BMI) Body height Heart rate Body temperature Body weight Systolic And Diastolic Provider Name and Address Organization Details Last Updated DateTime 2 26.1 kg/m2 187.96 cm 60 /min 97.3 [degF] 83837.2 5 g 116/58 mm[Hg] Not Available [facility] 3 04:43:44 Date Recorded Body height Body mass index (BMI) Body weight Body temperature Heart rate Systolic And Diastolic Provider Name and Address Organization Details Last Updated DateTime 3 187.96 cm 28.2 kg/m2 38144.3 2 g 97.6 [degF] 62 /min 120/72 mm[Hg] BUTCH Gilbert [employer] [facility] [employer] [facility] 3 10:06:49 Date Recorded Body height Body mass index (BMI) Body weight Body temperature Heart rate Systolic And Diastolic Provider Name and Address Organization Details Last Updated DateTime 3 187.96 cm 29.5 kg/m2 373850. 25 g 97.5 [degF] 63 /min 122/60 mm[Hg] BUTCH Gilbert [employer] [facility] [employer] [facility] 3 10:41:40 Date Recorded Body mass index (BMI) Body height Heart rate Body temperature Body weight Systolic And Diastolic Provider Name and Address Organization Details Last Updated DateTime 2 26.8 kg/m2 187.96 cm 60 /min 97.5 [degF] 63930.8 1 g 110/72 mm[Hg] Not Available [facility] 04:43:44 Social History Question Answer Notes LastModified by Organization Details LastModified Time Tobacco Smoking Status Former Smoker quit age 14 Not Available [facility] 04/07/2022 04:08:23 Do You Have An Advance Directive? Yes MIGRATION.0301 [id number] Information not available 04/07/2022 Do You Wear A Helmet When Biking? No MIGRATION.0301 763923 Information not available 04/07/2022 Are You Blind Or Do You Have Difficulty Seeing? No MIGRATION.0301 132818 Information not available 04/07/2022 What Is Your Level Of Caffeine Consumption? Occasional MIGRATION.0301 656579 Information not available 04/07/2022 How Much Tobacco Do You Chew? None MIGRATION.030 076247 Information not available 04/07/2022 In The 14 Days Before Symptom Onset, Have You Had Close Contact With A Laboratory-confi rmed COVID-19 While That Case Was Ill? No MIGRATION.030 623985 Information not available 04/07/2022 In The 14 Days Before Symptom Onset, Have You Had Close Contact With A Person Who Is Under Investigation For COVID-19 While That Person Was Ill? No MIGRATION.0301 724465 Information not available 04/07/2022 Are You Deaf Or Do You Have Serious Difficulty Hearing? No MIGRATION.0301 719634 Information not available 04/07/2022 What Type Of Diet Are You Following? REGULAR MIGRATION.0301 017623 Information not available 04/07/2022 Which Illicit Or Recreational Drugs Have You Used? None MIGRATION.030 869286 Information not available 04/07/2022 What Is The Highest Grade Or Level Of School You Have Completed Or The Highest Degree You Have Received? [id number] MIGRATION.030 854132 Information not available 04/07/2022 Have There Been Any Changes To Your Family Or Social Situation? No MIGRATION.0301 206227 Information not available 04/07/2022 Are There Any Guns Present In Your Home? No MIGRATION.0301 861328 Information not available 04/07/2022 Do You Use Insect Repellent Routinely? No MIGRATION.0301 908202 Information not available 04/07/2022 Where Do You Live? [place] MIGRATION.0301 789855 Information not available 04/07/2022 Do You Have A Medical Power Of Tube Station Attendant? No MIGRATION.0301 776419 Information not available 04/07/2022 What Was The Date Of Your Most Recent Tobacco Screening? 09/23/2022 [email or web address] Information not available 09/23/2022 Do You Have Any Pets? Yes MIGRATION.0301 744212 Information not available 04/07/2022 What Is Your Relationship Status? MIGRATION.0301 088108 Information not available 04/07/2022 Do You Use Your Seat Belt Or Car Seat Routinely? Yes MIGRATION.0301 306777 Information not available 04/07/2022 Do You Have Smoke And Carbon Monoxide Detectors In Your Home? Yes MIGRATION.0301 193741 Information not available 04/07/2022 At What Age Did You Start Smoking Tobacco? 10 Started At 10 Yrs Old-stoppe d At 14 Yrs Old MIGRATION.0301 716168 Information not available 04/07/2022 Are You Passively Exposed To Smoke? No MIGRATION.0301 704000 Information not available 04/07/2022 Are There Any Smokers In Your House? No MIGRATION.0301 951463 Information not available 04/07/2022 How Much Tobacco Do You Smoke? No Was 1/2 Ppd MIGRATION.0301 582894 Information not available 04/07/2022 Do You Use Sunscreen Routinely? No MIGRATION.0301 259473 Information not available 04/07/2022 Have You Recently Traveled Abroad? No MIGRATION.0301 308878 Information not available 04/07/2022 Do You Have Difficulty Walking Or Climbing Stairs? No MIGRATION.0301 300699 Information not available 04/07/2022 Do You Have Any Dietary Restrictions? No MIGRATION.0301 634098 Information not available 04/07/2022 Sex: Male Functional Status Question Answer Note LastModified by Organizat ion Details LastModified Time Do you use any illicit or recreational drugs? No MIGRATION.250965 6778 Information not available 04/07/2022 Do you or have you ever used any other forms of tobacco or nicotine? No MIGRATION.198758 0783 Information not available 04/07/2022 What is your level of alcohol consumption? Moderate MIGRATION.595796 3210 Information not available 04/07/2022 Do you or have you ever used smokeless tobacco? Never used smokeless tobacco MIGRATION.395397 8666 Information not available 04/07/2022 Do you have difficulty doing errands alone? 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 No MIGRATION.603351 7619 Information not available 04/07/2022 Do you or have you ever used e-cigarettes or vape? Never used electronic cigarettes MIGRATION.803254 7873 Information not available 04/07/2022 What is your exercise level? Moderate MIGRATION.005410 8651 Information not available 04/07/2022 Mental Status Question Answer Note LastModified by Organizat ion Details LastModified Time Do you feel stressed (tense, restless, nervous, or anxious, or unable to sleep at night)? [id number] MIGRATION.[id number] 26 Information not available 04/07/2022 Do you have difficulty concentrating, remembering or making decisions? No MIGRATION.72683139 26 Information not available 04/07/2022 Family History Relationship Description Onset Age of this Age Resolved Age Notes LastModified by Organization Details LastModified Time Mother Chronic obstructive pulmonary disease MIGRATION.034 [id number] Not available 04/07/2022 04:43:11 Father Myocardial infarction MIGRATION.825 [id number] Not available 04/07/2022 04:43:11 Father Diabetes mellitus MIGRATION.914 [id number] Not available 04/07/2022 04:43:11 Father Heart disease MIGRATION.950 1021617 Not available 04/07/2022 04:43:11 Daughter Sj gren's syndrome MIGRATION.932 [id number] Not available 04/07/2022 04:43:11 Daughter Small fiber neuropathy MIGRATION.871 [id number] Not available 04/07/2022 04:43:11 Daughter Embolism MIGRATION.489 [id number] Not available 04/07/2022 04:43:11 Medical History Condition Response NERVE DISEASE N BLINDNESS N RHEUMATIC FEVER N KIDNEY STONES N BLADDER PROBLEMS N MRSA N OTHER # 1 Y POLIO N LUNG DISEASE/DISORDER N HISTORY OF DRUG ABUSE N RADIATION / CHEMOTHERAPY N COPD N Other # 2 N BLOOD DISEASES N SURGERY N EAR OR HEARING PROBLEMS N MUMPS N SHINGLES N DEPRESSION (INCLUDING POST ) N BOWEL PROBLEMS Y STROKE/TIA N ULCERS N BENIGN PROSTATIC HYPERPLASIA N MEASLES N HYPOTENSION N MYOCARDIAL INFARCTION N OBESITY N GERD/NAUSEA N ANEURYSM N URINARY/BLADDER/KIDNEY PROBLEMS N CORONARY ARTERY DISEASE (CAD) N ADDICTION CONCERNS N Impotence N ENDOMETRIOSIS N USE OF BLOOD THINNERS Y SKIN PROBLEMS N GASTROINTESTINAL DISORDER N PERIPHERAL VASCULAR DISEASE N MUSCLE,JOINT OR BONE PROBLEMS N GASTROINTESTINAL BLEEDING N BLOOD CLOTS Y ASTHMA N CATARACTS N ERECTILE DYSFUNCTION N VARICOSITIES N GI PROBLEMS N Low Testosterone N INFERTILITY N AIDS/HIV N CHEMOTHERAPY / RADIATION N LIVER DISEASE N MALE HYPOGONADISM N HYPERTENSION Y Deficiency N TOURETTE'S N ANXIETY DISORDER N BLOOD TRANSFUSION N ANEMIA/BLOOD DISORDER N CHRONIC EAR INFECTIONS N BRONCHITIS N TUBERCULOSIS N GLAUCOMA N FOOT PROBLEM N DIVERTICULITIS N SLEEP APNEA N CHICKENPOX Y INFECTIOUS DISEASE N PROSTATE N HEART ARRHYTHMIA N INSOMNIA N HIGH CHOLESTEROL / HYPERLIPIDEMIA Y HYPERTHYROIDISM N EYE PROBLEMS N NEUROLOGICAL PROBLEMS N EDEMA N CHRONIC PAIN SYNDROME N HYPOTHYROIDISM N CONSTIPATION N CAROTID BLOCKAGE N BACK / NECK PROBLEMS Y HAVE YOU BEEN HOSPITALIZED OR SEEN IN [facility] IN THE PAST YEAR ? N ATHEROSCLEROSIS N BREAST PROBLEMS N DIALYSIS N ECZEMA N OSTEOPOROSIS N ARTHRITIS N APPENDICITIS N DIABETES, TYPE N BAD TEETH N ENT N HEARTBURN / REFLUX N AFIB N AUTISM SPECTRUM DISORDER (ASD) N HEPATITIS / LIVER DISEASE N GOUT N SLEEP DISORDER N ALZHEIMER'S DISEASE N Brain Problems N HERPES N DEMENTIA N SEIZURES/EPILEPSY N HEADACHES/MIGRAINES N VASCULAR DISEASE N PACEMAKER N Blood Disorder N DIZZINESS N KIDNEY DISEASE N HEART DISEASE/HEART PROBLEMS N MULTIPLE SCLEROSIS N CARDIAC ARRHYTHMIA N CANCER: SPECIFY N Gall Stones N ATRIAL FIBRILLATION N PULMONARY EMBOLISM N AUTOIMMUNE DISEASE N Immunizations Vaccine Type Date Status Note Provider Nam e and Address Organization Details Recorded Time influenza, unspecified formulation 3 completed BUTCH Carrillo, [place] [facility] 12/13/2022 14:19:21 Influenza, split virus, trivalent, preservative 3 completed Not Available [facility] 09/24/2022 07:19:29 COVID-19, mRNA, LNP-S, PF, 100 mcg/0.5mL dose or 50 mcg/0.25mL dose 2 completed Not Available [facility] 09/24/2022 07:19:28 COVID-19, mRNA, LNP-S, PF, 100 mcg/0.5mL dose or 50 mcg/0.25mL dose 1 completed Not Available [facility] 09/24/2022 07:19:28 COVID-19, mRNA, LNP-S, PF, 100 mcg/0.5mL dose or 50 mcg/0.25mL dose 1 completed Not Available [facility] 09/24/2022 07:19:28 COVID-19, mRNA, LNP-S, PF, 100 mcg/0.5mL dose or 50 mcg/0.25mL dose 1 completed Not Available [facility] 09/24/2022 07:19:28 Influenza, split virus, quadrivalent, preservative 0 completed Not Available [facility] 09/24/2022 07:19:28 Influenza, split virus, quadrivalent, preservative 9 completed Not Available [facility] 09/24/2022 07:19:28 influenza, unspecified formulation 8 completed Not Available [facility] 09/24/2022 07:19:28 Influenza, split virus, quadrivalent, preservative 7 completed Not Available [facility] 09/24/2022 07:19:28 influenza, unspecified formulation 6 completed Not Available [facility] 09/24/2022 07:19:28 Influenza, split virus, trivalent, preservative 2 completed Not Available [facility] 09/24/2022 07:19:29 Influenza, split virus, trivalent, preservative 1 completed Not Available [facility] 09/24/2022 07:19:29 Influenza, split virus, quadrivalent, PF 5 completed Not Available [facility] 09/24/2022 07:19:29 Influenza, split virus, trivalent, preservative 4 completed Not Available [facility] 09/24/2022 07:19:29 Past Encounters Encounter ID Performer Location Encounter Start Date Encounter Closed Date Diagnosis/Indication Diagnosis SNOMED-CT Code Diagnosis ICD10 Code Diagnosis IMO Codes Diagnosis Note [id number] Sanchez Ramírez MD [facility] [place] [facility] 2043 [facility], [address] [address] 05/26/2020 00:00:00 05/31/2020 16:42:09 [id number] Sanchez Ramírez MD [facility] Internal Med [facility] [address] [place], [address] [address] 06/09/2020 00:00:00 06/09/2020 21:51:34 [id number] Sanchez Ramírez MD [facility] Internal Med [place] lle [address] [place] [address] [place] [address] 07/24/2020 00:00:00 07/24/2020 20:37:25 [id number] Sanchez Ramírez MD [facility] [place] [address] [place] [address] [place] [address] 11/27/2020 00:00:00 12/08/2020 22:49:58 [id number] Sanchez Ramírez MD [facility] [place] [address] [place] [address] [place] [address] 05/28/2021 00:00:00 05/28/2021 21:10:55 [id number] Sanchez Ramírez MD [facility] [place] [address] [place] [address] [place] [address] 12/15/2021 00:00:00 12/15/2021 21:53:18 [id number] Sanchez Ramírez MD [facility] Med [facility] [address], [address] [address] 05/05/2022 09:58:04 05/05/2022 11:29:11 Nausea [id number] R11.0 Abdominal pain [id number] R10.9 [id number] Sanchez Ramírez MD [facility] Med [facility] [address] [address] 05/28/2022 09:56:28 05/28/2022 10:57:03 Rhinitis [id number] J00 Essential hypertension [id number] I10 [id number] Sanchez Ramírez MD [facility] [place] [address] [place] [address] [place] [address] 09/23/2022 10:36:00 09/23/2022 10:54:44 Essential hypertension 06189199 I10 Chronic rhinitis 5062108 6 J31.0 Pure hypercholesterolemia [id number] E78.00 Cough 58979438 R05.9 Gastritis 8524505 K29.70 Health Concerns Section Related Observation LastModified by Organization Detai ls LastModified Time None Recorded Concern Status LastModified by Organization Details LastModified Time None Recorded Advance Directives Directive Y: Payers Insurance Date Sequence Insurance Name Policy Number Policy Botello Covered Member ID Botello Member ID Guarantor Name 08/24/2023 [facility] Angelo Dahl SELF SELF Angelo Dahl 08/24/2023 1 [employer] [id number] Angelo Dahl [id number] Angelo Dahl Notes Date Note Type Note Provider Name and Address Organization Details Recorded Time 3 text/html Will described abdominal discomfort with some nausea on off for a couple of months now without any change in bowel habits nothing seems to make it better or worse it is [id number] does not cause any vomiting no blood in stool weight is been stable has not changed any eating habits and there has not been any skin rashes no travel or sick contacts Sanchez Ramírez MD [address], [employer], [place], [address], [facility] 05/05/2022 21:53:38 3 text/html Endoscopy showed gastritisHe is having problems with rhinitisHypertension no dizziness or headache 120/72 Sanchez Ramírez MD [address] [employer], [place], [address], [facility] 05/30/2022 14:50:34 3 text/html Hypertension no headache no dizziness chronic rhinitis doing of okay but has had little bit of cough dyslipidemia Try to follow low-fat diet gastritis doing fine a PPI chronic DVT Eliquis history of SVT and PACs beta-nessa Sanchez Ramírez MD [address] [employer], [place], [address], [facility] 09/23/2022 11:04:28
[2024-12-18 12:45] VITALS: BP 129/78; PULSE 104; RESP 18; TEMP 36.2; O2SAT 99
[2024-12-18] MEDS: LACTATED RINGERS 1,000 ML 150 ML IV CONT (12:54)
--- NOTE | 2024-12-18 13:02 | WPDANESEPPF ---
Anes - Initial Pre Proc Eval Procedure: Operation Date: 12/18/24 13:00 Proposed Procedures p Screening Colonoscopy - Martin Hazel DO Date/Time: 12/18/24 13:02 Surgeon: Martin Hazel DO Pre Op Diagnosis: Neoplasm screening Patient Data Age: 64 Gender: M Height: 1.88 m Weight: 94.4 kg Last Vital Signs Temp 36.2 C L 12/18/24 12:45 Pulse 104 H 12/18/24 12:45 Resp 18 12/18/24 12:45 BP 129/78 12/18/24 12:45 Pulse Ox 99 12/18/24 12:45 O2 Del Method Room Air 12/18/24 12:45 Allergies Allergy/AdvReac Type Severity Reaction Status Date / Time No Known Allergies Allergy Verified 12/18/24 12:43 Home Medications ?Medication ?Instructions ?Recorded ?Confirmed ?Type apixaban 5 mg tablet (Eliquis) 5 mg PO BID 07/07/23 12/18/24 History lisinopril 2.5 mg tablet 2.5 mg PO HS 07/07/23 12/18/24 History loratadine 10 mg tablet 10 mg PO DAILY 07/07/23 12/18/24 History metoprolol tartrate 25 mg tablet 25 mg PO BID 07/07/23 12/18/24 History montelukast 10 mg tablet 10 mg PO QPM 07/07/23 12/18/24 History pantoprazole 40 mg tablet,delayed 40 mg PO QAM 07/07/23 12/18/24 History release atorvastatin 20 mg tablet 20 mg PO QPM 12/12/24 12/18/24 History lactobacillus combination no.9 1 cap PO DAILY 12/12/24 12/18/24 History magnesium oxide 400 mg PO DAILY 12/12/24 12/18/24 History mecobalamin (vitamin B12) 500 mcg 500 mcg PO DAILY 12/12/24 12/18/24 History chewable tablet multivitamin (Daily Multi-Vitamin 1 tablet PO DAILY 12/12/24 12/18/24 History tablet) Patient hx anesthesia problems: none Family hx anesthesia problems: none Results Review: All pre-operative results and documents have been reviewed as part of the pre-operative evaluation. [facility] Past Medical History Medical History Allergies High cholesterol History of blood clots Hypertension Indigestion Surgical History Surgical History History of arthroscopic knee surgery r-knee 2020 History of lumbar surgery 1988 lumbar fusion Social History Social History Smoking status: Never smoker Alcohol intake: current Substance use: never Substance use type: does not use Do You Feel Safe in your Home?: Yes Lack of Transportation: No Lack of Food: Never True Current Housing: I Have Housing Concerned About Future Housing: No Difficulty Paying Gas/Electric Bills: No Difficulty Paying for Meds: No Currently Unemployed: No Education: Bachelor's Degree Difficulty w/ Childcare or Family Care: No Living arrangements: with family Occupation/Education: retired Gender identity (if verbalized by the patient): Male Spiritual care concerns: No Anes - Eval Final PreProcedure Day of Procedure 12/18/24 13:02 Patient weight: overweight Heart: regular rate and rhythm Lungs: clear to auscultation Airway: Mallampati scale class II Neurological: alert and oriented Last oral intake: >/= 8 hours ASA classification: III Emergent: no Anesthetic plan: proceed Anesthesia type and monitoring: general GIVS and standard monitoring Results Review: All pre-operative results and documents have been reviewed as part of the pre-operative evaluation. Informed Consent: The patient's anesthetic plan and its attendant risks and benefits were discussed with the patient/family/POA. Questions were solicited and answers provided to the satisfaction of the patient/family/POA.
--- NOTE | 2024-12-18 13:23 | PM.IMHP ---
H&P: HPI History of Present Illness Date/Time: 12/18/24 13:23 Chief Complaint: Screening for colorectal cancer Narrative: This is a 64-year-old man who presents colonoscopy. Last colonoscopy was 10 years ago. He denies any hematochezia or melena. He denies family history of colon cancer. Review of Systems Review of Systems: All systems reviewed & are unremarkable except as noted in HPI and below Constitutional: Constitutional: Denies chills, Denies fever(s), Denies headache(s) and Denies weight loss Eyes: Eyes: Denies change in vision ENT: Denies dizziness, Denies headache(s), Denies neck mass and Denies throat swelling Cardiovascular: Cardiovascular: Denies chest pain, Denies lightheadedness and Denies dyspnea Respiratory: Respiratory: Denies cough, Denies dyspnea and Denies wheezing Gastrointestinal: Gastrointestinal: Denies abdominal pain, Denies change in bowel habits, Denies nausea and Denies vomiting Genitourinary: Genitourinary: Denies hematuria and Denies dysuria Musculoskeletal: Musculoskeletal: Reports as per HPI Integumentary/Breasts: Skin/Breast: Reports as per HPI Neurologic: Denies dizziness and Denies headache(s) Allergic/Immunologic: Allergic/Immunologic: Denies throat swelling and Denies wheezing [facility] Past Medical History Medical History Allergies High cholesterol History of blood clots Hypertension Indigestion Surgical History Surgical History History of arthroscopic knee surgery r-knee 2020 History of lumbar surgery 1988 lumbar fusion Social History Social History Smoking status: Never smoker Alcohol intake: current Substance use: never Substance use type: does not use Do You Feel Safe in your Home?: Yes Lack of Transportation: No Lack of Food: Never True Current Housing: I Have Housing Concerned About Future Housing: No Difficulty Paying Gas/Electric Bills: No Difficulty Paying for Meds: No Currently Unemployed: No Education: Bachelor's Degree Difficulty w/ Childcare or Family Care: No Living arrangements: with family Occupation/Education: retired Gender identity (if verbalized by the patient): Male Spiritual care concerns: No Meds Home Medications and Allergies Home Medications ?Medication ?Instructions ?Recorded ?Confirmed ?Type apixaban 5 mg tablet (Eliquis) 5 mg PO BID 07/07/23 12/18/24 History lisinopril 2.5 mg tablet 2.5 mg PO HS 07/07/23 12/18/24 History loratadine 10 mg tablet 10 mg PO DAILY 07/07/23 12/18/24 History metoprolol tartrate 25 mg tablet 25 mg PO BID 07/07/23 12/18/24 History montelukast 10 mg tablet 10 mg PO QPM 07/07/23 12/18/24 History pantoprazole 40 mg tablet,delayed 40 mg PO QAM 07/07/23 12/18/24 History release atorvastatin 20 mg tablet 20 mg PO QPM 12/12/24 12/18/24 History lactobacillus combination no.9 1 cap PO DAILY 12/12/24 12/18/24 History magnesium oxide 400 mg PO DAILY 12/12/24 12/18/24 History mecobalamin (vitamin B12) 500 mcg 500 mcg PO DAILY 12/12/24 12/18/24 History chewable tablet multivitamin (Daily Multi-Vitamin 1 tablet PO DAILY 12/12/24 12/18/24 History tablet) Allergies Allergy/AdvReac Type Severity Reaction Status Date / Time No Known Allergies Allergy Verified 12/18/24 12:43 Vital Signs Vital Signs - 24 hr 12/18/24 12:45 Temperature 97.1 F L Pulse Rate 104 H Respiratory Rate 18 Blood Pressure 129/78 Pulse Oximetry 99 Oxygen Delivery Room Air Exam Const: General: no acute distress and alert Orientation/consciousness: patient oriented x3 HENMT: Head: normocephalic and atraumatic Ears: hearing grossly normal bilaterally Face/Nose/Sinus: Normal nares present Mouth: Yes Normal oral and palatal mucosa present Eyes: Periorbital: periorbital findings normal Sclera: sclerae normal EOM: EOMs intact bilaterally Neck: Neck: normal visual inspection, no lymphadenopathy and trachea midline Chest: Chest palpation & inspection: normal inspection of the chest Resp: Effort & Inspection: normal respiratory effort Auscultation: clear to auscultation bilaterally Cardio: Jugular venous distension: no JVD Rate: regular rate Rhythm: regular rhythm Heart sounds: S1 normal heart sound present and S2 normal heart sound present Peripheral pulses: Peripheral pulses 2+ throughout GI: Inspection: normal to inspection GI Palp: Yes Soft to palpation, No Tenderness to palpation present (GI), No Guarding due to palpation present (GI) and No Rebound tenderness present Percussion: Yes normal to percussion Auscultation: normal bowel sounds : General: Yes no CVA tenderness Back/Spine/Pelvis: Back: no CVA tenderness Neuro: General: patient oriented x3, no focal motor deficits and CN's II-XI intact bilaterally Cognition (Neuro): normal cognition Speech: normal speech Motor exam (neuro): 5/5 motor strength present throughout Extrem: General: capillary refill normal and no clubbing, cyanosis or edema Assessment and Plan Assessment and plan (1) Screening for colorectal cancer: Code(s): Z12.11 - Encounter for screening for malignant neoplasm of colon; Z12.12 - Encounter for screening for malignant neoplasm of rectum Status: Acute Assessment and Plan: I have recommended colonoscopy. I have discussed the procedure, risks, benefits, and alternatives. Questions were answered. Patient is agreeable to proceed.
[2024-12-18 13:46] VITALS: BP 100/64; PULSE 88; RESP 17; O2SAT 95
[2024-12-18 13:56] VITALS: BP 128/69; PULSE 90; RESP 18; O2SAT 98
[2024-12-18 14:06] VITALS: BP 127/65; PULSE 89; RESP 20; O2SAT 100
== END 2024-12-18 14:10 | disposition home or self-care (01) ==
PROVIDERS: PCP Internal Medicine; Visit Provider Surgery
PROC: 0DJD8ZZ Inspection of Lower Intestinal Tract, Via Natural or Artificial Opening Endoscopic (ICD-10-PCS; CPT 45378; principal; 2024-12-18 13:00)
DX: Z12.11 Encounter for screening for malignant neoplasm of colon (principal); K57.30 Diverticulosis of large intestine without perforation or abscess without bleeding; K64.8 Other hemorrhoids
CPT/HCPCS: G0121; J2003; J2704; J7120